=== PATIENT | male | born 1995 | race African-American/Black ===

== ENCOUNTER 2021-09-15 17:46 | Emergency (ER) | payer SELFPAY ==
[2021-09-15] MEDS ORDERED: Ibuprofen 200 MG TAB ONE ×2 (20:23→20:29)
== END 2021-09-15 22:03 | disposition home or self-care (01) ==
LOC: ERS 17:46
DX: S09.90XA Unspecified injury of head, initial encounter (principal); Y04.0XXA Assault by unarmed brawl or fight, initial encounter
CPT/HCPCS: 70450

== ENCOUNTER 2021-10-26 17:34 | Emergency (ER) | payer SELFPAY | END 2021-10-26 20:31 | disposition home or self-care (01) | LOC: ERS 17:34 | DX: M25.562 Pain in left knee (principal); X58.XXXA Exposure to other specified factors, initial encounter; Y93.02 Activity, running ==

== ENCOUNTER 2022-04-11 12:21 | Emergency (ER) | payer SELFPAY ==
[2022-04-11] MEDS ORDERED: Ibuprofen 200 MG TAB ONE (14:02)
== END 2022-04-11 15:41 | disposition home or self-care (01) ==
LOC: ERS 12:21
DX: M25.531 Pain in right wrist (principal); Y93.71 Activity, boxing

== ENCOUNTER 2024-11-04 23:22 | Emergency (ER) | payer SELFPAY ==
[2024-11-04] MEDS ORDERED: Benzonatate 100 MG CAP ONE (23:58)
[2024-11-05] MEDS ORDERED: Ketorolac Tromethamine 30 MG (1 mL) VIAL ONE (00:29)
== END 2024-11-05 02:08 | disposition home or self-care (01) ==
LOC: ERS 23:22
DX: J10.1 Influenza due to other identified influenza virus with other respiratory manifestations (principal); T48.5X1A Poisoning by other anti-common-cold drugs, accidental (unintentional), initial encounter; Z76.0 Encounter for issue of repeat prescription
CPT/HCPCS: 71045; 84484; 87081; 87428; 87430; 93005; 96372; J1885; J7620